=== PATIENT | male | born 1975 | race African-American/Black ===

== ENCOUNTER 2019-10-05 07:25 | Inpatient (IN) | payer SELFPAY ==
[~2019-10-05] VITALS: Ht 185.4 cm; Wt 68.9 kg
[~2019-10-05 07:25] MED LIST: ALBU2.5V5 NEB; FLUT1DIS5 IH
--- NOTE | 2019-10-05 08:03 | RAD ---
SHOULDER 2+V LEFT DATE: 10/05/2019 7:28 AM INDICATION: pain, fall COMPARISON: None. FINDINGS: Bones: There is no evidence of acute fracture or dislocation. Joints: The joint spaces are normal. The acromiohumeral distance is not narrowed. Miscellaneous: No abnormal soft tissue calcifications in the shoulder. IMPRESSION: No evidence of acute fracture. Electronically signed by: Grant Castanon MD (10/05/2019 8:00 AM) [id number]
[2019-10-05] MEDS ORDERED: diazePAM 5 MG TABLET PO ONE (08:15)
--- NOTE | 2019-10-05 08:27 | PHYS DOC ---
Past Medical History Past Medical History: COPD, Other Additional Past Medical Histor: EMPHYSEMA Past Surgical History: Other Additional Past Surgical Histo: SCROTUM SX Smoking Status: Current Every Day Smoker Alcohol Use: None Drug Use: Marijuana General Adult EDM: Chief Complaint: SHOULDER INJURY HPI: HPI: Patient is a 43 year old male who presents with neck, shoulder, arm pain. He was sleepwalking 2 nights ago and fell trying to open a door. He is unsure how he landed. He has been having midline neck pain that radiates into his shoulder and down his arm. He is left hand feels tingly along fingers 1 through 3. This is been ongoing since the fall. He denies any additional injuries. He denies any additional numbness. He has never had anything like this before. No medical history. Review of Systems: Review of Systems: General: Denies fever, chills, sweats, fatigue Eyes: Denies drainage, blurred vision HENT: Denies rhinorrhea, sore throat Respiratory: Denies cough, shortness of breath, wheezing Cardiac: Denies edema, palpitations, chest pain GI: Denies abdominal pain, N/V MSK: Denies back pain.reports neck pain Skin: Denies rash, jaundice Neuro: Denies headache, dizziness reports numbness in fingers Psychiatric: Denies SI/HI Heart Score: Risk Factors: Risk Factors: DM, Current or recent (<one month) smoker, HTN, HLP, family history of CAD, obesity. Risk Scores: Score 0 - 3: 2.5% MACE over next 6 weeks - Discharge Home Score 4 - 6: 20.3% MACE over next 6 weeks - Admit for Clinical Observation Score 7 - 10: 72.7% MACE over next 6 weeks - Early Invasive Strategies Current Medications: Current Medications Medications (Trade) Dose Ordered Sig/Vinny Start Time Stop Time Status Last Admin Dose Admin Diazepam (Valium) 5 mg 1X ONCE 10/05/19 08:15 10/05/19 08:16 DC Allergies: Allergies: Allergies Coded Allergies Type Severity Reaction Last Updated Verified No Known Drug Allergies 11/22/15 No Physical Exam: PE: Constitutional: Well developed, well nourished, Cooperative, NAD, non-toxic appearing HEENT: Normocephalic, atraumatic, oropharynx moist, EOMI, PERRL, no drainage from eyes, normal conjunctiva Neck: Supple, no stridor. Cervical spine tenderness Cardiovascular: RRR, 2+ radial pulses bilaterally, no edema Respiratory: CTA bilaterally, no respiratory distress, no wheezing/crackles Abdomen: Soft, nontender, nondistended, no masses Skin: Warm, dry, intact Extremities: No obvious deformities Neurologic: Alert and Oriented x3, 5/5 strength in bilateral upper and lower extremities proximally and distally, decreased sensation in fingers 1-3 in the left hand, otherwise intact sensation, cranial nerves II through XII intact, normal gait Psychologic: Normal affect, normal judgment, normal mood. No SI/HI Current Patient Data: Vital Signs: Vital Signs Date Time Temp Pulse Resp B/P (MAP) Pulse Ox O2 Delivery O2 Flow Rate FiO2 10/05/19 07:31 98.1 66 14 146/86 (106) 98 Room Air 98.1 EKG: EKG: [] Radiology/Procedures: Radiology/Procedures: [] Course & Med Decision Making: Course & Med Decision Making Pertinent Labs and Imaging studies reviewed. (See chart for details) Patient is a 43-year-old male who presents to the emergency room complaining of neck pain that radiates into his shoulder and down his arm. This started after falling. Patient does have some cervical spine tenderness. Given his paresthesias in his hand I am concerned about a possible cervical injury. X-ray of the shoulder was done as that is where most of his pain is and was normal. CT shows cervical spine facet fx. Neurosurgery(Dr Shin) was paged upon getting these results. CT angio negative for vascular injury. Patient to be admitted for evaluation. Erika Disclaimer: Erika Disclaimer: This electronic medical record was generated, in whole or in part, using a voice recognition dictation system. Departure Departure Impression: Primary Impression: Cervical spine fracture Additional Impression: Paresthesia Disposition: ADMITTED INPATIENT Condition: STABLE Referrals: NO PCP (PCP) Justicifation of Admission Dx: Justifications for Admission: Justification of Admission Dx: Yes NIRAV VALLE MD Oct 05, 2019 08:27
--- NOTE | 2019-10-05 08:54 | RAD ---
PQRS Compliance Statement: One or more of the following individualized dose reduction techniques were utilized for this examination: 1. Automated exposure control 2. Adjustment of the mA and/or kV according to patient size 3. Use of iterative reconstruction technique CT cervical spine without contrast 10/05/2019 8:10 AM INDICATION: Cervical spine tenderness and numbness in left hand COMPARISON: None available TECHNIQUE: Multiple axial CT images of the cervical spine were obtained without intravenous contrast. Coronal and sagittal reformats are provided. FINDINGS: Minimal retrolisthesis of C5 on C6. Skull base is intact. Craniocervical junction is normal in appearance. Atlantoaxial articulation is normal. There is an acute fracture involving the left transverse process extending into the left facet with extension of fracture line to the left C6-C7 facet joint along the superior articular surface of the C7 facet. Fracture line appears to extend to the left transverse foramen at C7 (series 3, image 50). There is no perched facet. There is disc height loss at C5-C6 and C6-C7. There is a posterior disc osteophyte complex at C5-C6 with mild facet arthropathy and moderate left and moderate uncovertebral joint disease resulting in moderate left and mild right neuroforaminal stenosis. No significant osseous spinal canal stenosis. There is a suspected left central disc protrusion at C6-C7 resulting in moderate left neuroforaminal stenosis and mild spinal canal stenosis. There is no prevertebral soft tissue swelling. Thyroid gland is normal in appearance. Bullous emphysematous changes are suspected at the lung apices without lung markings visualized. IMPRESSION: 1. Mildly displaced acute fracture involving the left C7 transverse process extending to the left C7 facet, as described in detail above. There is suggestion of disruption of the left transverse foramen at T7. CTA of the neck could be of benefit to assess for vascular injury. 2. Suspect bullous emphysematous changes at the lung apices as no lung markings are identified bilaterally. Electronically signed by: Kristina Nunez MD (10/05/2019 8:51 AM) JEZ
[2019-10-05] MEDS ORDERED: IOHEXOL 350 MG/ML 100 ML VIAL. IV ONE (10:30)
--- NOTE | 2019-10-05 11:05 | RAD ---
Exam: CT ANGIOGRAPHY NECK Date: 10/05/2019 9:33 AM Indication: Reason: cervical spine fx Comparison: CT C-spine 10/05/2019 Technique: CT angiogram of neck was obtained with bolus injection of 75 mL of Omnipaque 350. The images were sent to workstation and multiplanar reconstructions were obtained. Multiplanar reconstruction images to include MIP and 3-D reconstruction images are submitted. One or more of the following dose reduction techniques were utilized: Automated exposure control (AEC), Adjustment of mA and/or kV according to patient size, Use of iterative reconstruction technique such as ASiR, CT scan done according to ALARA and image gently/image wisely Findings: Right carotid: The right common carotid artery is patent and normal caliber. The carotid bifurcation is normal. No stenosis of the right internal carotid artery per NASCET criteria. The right external carotid artery is patent. Left carotid: The left common carotid artery is patent and normal caliber. The carotid bifurcation is normal. No stenosis of the left internal carotid artery per NASCET criteria. The left external carotid artery is patent. Right vertebral: The right vertebral artery is patent and normal caliber. Left vertebral: The left vertebral artery is patent and normal caliber. The visualized portions of the aortic arch are normal. The origins of the brachiocephalic and subclavian arteries are normal. No cervical lymphadenopathy. The thyroid gland is normal. The parotid and submandibular glands are normal. The visualized aerodigestive tract is unremarkable. Unchanged acute left C7 transverse process fracture. Biapical bullous disease. Impression: 1. No dissection or pseudoaneurysm of the cervical carotid or vertebral arteries. 2. Unchanged left C7 transverse process fracture. 3. No stenosis of the cervical carotid or vertebral arteries. PQRS Compliance Statement - Stenosis calculations for CT, MR and conventional angiography are based upon measurement of the distal ICA diameter in accordance with the NASCET methodology. Electronically signed by: Grant Castanon MD (10/05/2019 11:02 AM) [id number]
--- NOTE | 2019-10-05 11:38 | PDOC1 ---
History and Physical Date of Admission Date of Admission DATE: 10/05/19 TIME: 11:38 Identification/Chief Complaint Chief Complaint SEEN IN ER WITH CERVICAL FX 43 year old male who presents with neck, shoulder, arm pain. He was sleeping in friends truck 2 nights ago and fell when his friend opened the pick-up door, truck is normal height, he fell onto concrete surface He is unsure how he landed because he had been sleeping . C/O midline neck pain that radiates into his shoulder and down his arm. left hand feels tingly along fingers 1 through 3. This is been ongoing since the fall. denies any additional injuries. no head pain Past Medical History Past Medical History Past Medical History Past Medical History Past Medical History: COPD, Other Additional Past Medical Histor: EMPHYSEMA Past Surgical History: Other Additional Past Surgical Histo: SCROTUM SX Smoking Status: Current Every Day Smoker Alcohol Use: None Drug Use: Marijuana fhx copd Cardiovascular: No pertinent hx Pulmonary: COPD CENTRAL NERVOUS SYSTEM: Other GI: No pertinent hx Heme/Onc: No pertinent hx Hepatobiliary: No pertinent hx Psych: No pertinent hx Musculoskeletal: No pain Rheumatologic: No pertinent hx Infectious disease: No pertinent hx Renal/: No pertinent hx Endocrine: No pertinent hx Past Surgical History Past Surgical History: No pertinent history Family History Family History PAST SURGICAL HISTORY Past Surgical History: No pertinent history FAMILY HISTORY Family History negative for CAD, HTN, DM SOCIAL HISTORY Smoke: <1 pack per day (has smoked since he was a teenager; quits briefly when he is in senior living ) ALCOHOL: none Drugs: Marijuana (every other day) Lives: with Family (unemployed) Social History Smoke: <1 pack per day ALCOHOL: none Drugs: Marijuana, Other (unemployed) Current Medications Current Medications Current Medications Diazepam (Valium) 5 mg 1X ONCE PO Last administered on 10/05/19at 08:24; Start 10/05/19 at 08:15; Stop 10/05/19 at 08:16; Status DC Iohexol (Omnipaque 350 Mg/ml) 75 ml 1X ONCE IV Last administered on 10/05/19at 10:44; Start 10/05/19 at 10:30; Stop 10/05/19 at 10:32; Status DC Active Scripts Active Advair 500-50 Diskus (Fluticasone/Salmeterol) 1 Each Disk.w.dev 1 Puff IH BID Albuterol Sulfate Neb Soln (Albuterol Sulfate) 2.5 Mg/3 Ml Vial.neb 2.5 Mg NEB PRN Q4HRS PRN Allergies Allergies: Coded Allergies: No Known Drug Allergies (Unverified , 11/22/15) ROS Review of System Review of Systems: Review of Systems: General: Denies fever, chills, sweats, fatigue Eyes: Denies drainage, blurred vision HENT: Denies rhinorrhea, sore throat Respiratory: Denies cough, shortness of breath, wheezing Cardiac: Denies edema, palpitations, chest pain GI: Denies abdominal pain, N/V MSK: Denies back pain.reports neck pain Skin: Denies rash, jaundice Neuro: Denies headache, dizziness reports numbness in fingers Psychiatric: Denies SI/HI 14 pt ros otherwise neg PSYCHOLOGICAL ROS: No: Anxiety, Behavioral Disorder, Concentration difficultie, Decreased libido, Depression, Disorientation, Hallucinations, Hostility, Irritablity, Memory difficulties, Mood Swings, Obsessive thoughts, Physical abuse, Sexual abuse, Sleep disturbances, Suicidal ideation, Other Eyes: No Blurry vision, No Decreased vision, No Double vision, No Dry eyes, No Excessive tearing, No Eye Pain, No Itchy Eyes, No Loss of vision, No Photophobia, No Scotomata, No Uses contacts, No Uses glasses, No Other HEENT: No: Heacaches, Visual Changes, Hearing change, Nasal congestion, Nasal discharge, Oral lesions, Sinus pain, Sore Throat, Epistaxis, Sneezing, Snoring, Tinnitus, Vertigo, Vocal changes, Other ALLERGY AND IMMUNOLOGY: No: Hives, Insect Bite Sensitivity, Itchy/Watery Eyes, Nasal Congestion, Post Nasal Drip, Seasonal Allergies, Other Hematological and Lymphatic: No: Bleeding Problems, Blood Clots, Blood Transfusions, Brusing, Night Sweats, Pallor, Swollen Lymph Nodes, Other Respiratory: YES: Cough; No: Hemoptysis, Orthopnea, Pleuritic Pain, Shortness of breath, SOB with excertion, Sputum Changes, Stridor, Tachypnea, Wheezing, Other Cardiovascular: No Chest Pain, No Palpitations, No Orthopnea, No Paroxysmal Noc. Dyspnea, No Edema, No Lt Headedness, No Other Gastrointestinal: No Nausea, No Vomiting, No Abdominal Pain, No Diarrhea, No Constipation, No Melena, No Hematochezia, No Other Genitourinary: No Dysuria, No Frequency, No Incontinence, No Hematuria, No Retention, No Discharge, No Urgency, No Pain, No Flank Pain, No Other, No , No , No , No , No , No , No Neurological: Yes Gait Disturbance Skin: No Dry Skin, No Eczema, No Hair Changes, No Lumps, No Mole Changes, No Mottling, No Nail Changes, No Pruritus, No Rash, No Skin Lesion Changes, No Other, No Acne Physical Exam Physical Exam Physical Exam: PE: Constitutional: Well developed, well nourished, Cooperative, NAD, non-toxic appearing HEENT: Normocephalic, atraumatic, oropharynx moist, EOMI, PERRL, no drainage from eyes, normal conjunctiva Neck: Supple, no stridor. Cervical spine tenderness Cardiovascular: RRR, 2+ radial pulses bilaterally, no edema Respiratory: CTA bilaterally, no respiratory distress, no wheezing/crackles Abdomen: Soft, nontender, nondistended, no masses Skin: Warm, dry, intact Extremities: No obvious deformities Neurologic: Alert and Oriented x3, 5/5 strength in bilateral upper and lower extremities proximally and distally, decreased sensation in fingers 1-3 in the left hand, otherwise intact sensation, cranial nerves II through XII intact, normal gait Psychologic: Normal affect, normal judgment, normal mood. No SI/HI General: Alert, Oriented X3, Cooperative, No acute distress HEENT: EOMI, Mucous membr. moist/pink Lungs: Normal air movement Heart: RRR Breasts: Not examined Abdomen: Normal bowel sounds, Soft Rectal Exam: not examined Neuro: Normal speech, Cranial nerves 3-12 NL Vitals Vitals Vital Signs Date Time Temp Pulse Resp B/P (MAP) Pulse Ox O2 Delivery O2 Flow Rate FiO2 10/05/19 10:00 58 14 132/88 (103) 98 Room Air 10/05/19 07:31 98.1 98.1 Labs Labs Laboratory Tests Test 10/05/19 09:05 Sodium Level 143 mmol/L (136-145) Potassium Level 3.7 mmol/L (3.5-5.1) Chloride Level 106 mmol/L (98-107) Carbon Dioxide Level 28 mmol/L (21-32) Anion Gap 9 (6-14) Blood Urea Nitrogen 15 mg/dL (8-26) Creatinine 1.1 mg/dL (0.7-1.3) Estimated GFR (Cockcroft-Gault) 89.3 Glucose Level 89 mg/dL (70-99) Calcium Level 8.9 mg/dL (8.5-10.1) Laboratory Tests Test 10/05/19 09:05 Sodium Level 143 mmol/L (136-145) Potassium Level 3.7 mmol/L (3.5-5.1) Chloride Level 106 mmol/L (98-107) Carbon Dioxide Level 28 mmol/L (21-32) Anion Gap 9 (6-14) Blood Urea Nitrogen 15 mg/dL (8-26) Creatinine 1.1 mg/dL (0.7-1.3) Estimated GFR (Cockcroft-Gault) 89.3 Glucose Level 89 mg/dL (70-99) Calcium Level 8.9 mg/dL (8.5-10.1) Images Images Date: 10/05/2019 9:33 AM Indication: Reason: cervical spine fx Comparison: CT C-spine 10/05/2019 Technique: CT angiogram of neck was obtained with bolus injection of 75 mL of Omnipaque 350. The images were sent to workstation and multiplanar reconstructions were obtained. Multiplanar reconstruction images to include MIP and 3-D reconstruction images are submitted. One or more of the following dose reduction techniques were utilized: Automated exposure control (AEC), Adjustment of mA and/or kV according to patient size, Use of iterative reconstruction technique such as ASiR, CT scan done according to ALARA and image gently/image wisely Findings: Right carotid: The right common carotid artery is patent and normal caliber. The carotid bifurcation is normal. No stenosis of the right internal carotid artery per NASCET criteria. The right external carotid artery is patent. Left carotid: The left common carotid artery is patent and normal caliber. The carotid bifurcation is normal. No stenosis of the left internal carotid artery per NASCET criteria. The left external carotid artery is patent. Right vertebral: The right vertebral artery is patent and normal caliber. Left vertebral: The left vertebral artery is patent and normal caliber. The visualized portions of the aortic arch are normal. The origins of the brachiocephalic and subclavian arteries are normal. No cervical lymphadenopathy. The thyroid gland is normal. The parotid and submandibular glands are normal. The visualized aerodigestive tract is unremarkable. Unchanged acute left C7 transverse process fracture. Biapical bullous disease. Impression: 1. No dissection or pseudoaneurysm of the cervical carotid or vertebral arteries. 2. Unchanged left C7 transverse process fracture. 3. No stenosis of the cervical carotid or vertebral arteries. PQRS Compliance Statement - Stenosis calculations for CT, MR and conventional angiography are based upon measurement of the distal ICA diameter in accordance with the NASCET methodology. Electronically signed by: Theodore Boggs MD (10/05/2019 11:02 AM) [id number] DICTATED and SIGNED BY: THEODORE BOGGS MD CT cervical spine without contrast 10/05/2019 8:10 AM INDICATION: Cervical spine tenderness and numbness in left hand COMPARISON: None available TECHNIQUE: Multiple axial CT images of the cervical spine were obtained without intravenous contrast. Coronal and sagittal reformats are provided. FINDINGS: Minimal retrolisthesis of C5 on C6. Skull base is intact. Craniocervical junction is normal in appearance. Atlantoaxial articulation is normal. There is an acute fracture involving the left transverse process extending into the left facet with extension of fracture line to the left C6-C7 facet joint along the superior articular surface of the C7 facet. Fracture line appears to extend to the left transverse foramen at C7 (series 3, image 50). There is no perched facet. There is disc height loss at C5-C6 and C6-C7. There is a posterior disc osteophyte complex at C5-C6 with mild facet arthropathy and moderate left and moderate uncovertebral joint disease resulting in moderate left and mild right neuroforaminal stenosis. No significant osseous spinal canal stenosis. There is a suspected left central disc protrusion at C6-C7 resulting in moderate left neuroforaminal stenosis and mild spinal canal stenosis. There is no prevertebral soft tissue swelling. Thyroid gland is normal in appearance. Bullous emphysematous changes are suspected at the lung apices without lung markings visualized. IMPRESSION: 1. Mildly displaced acute fracture involving the left C7 transverse process extending to the left C7 facet, as described in detail above. There is suggestion of disruption of the left transverse foramen at T7. CTA of the neck could be of benefit to assess for vascular injury. 2. Suspect bullous emphysematous changes at the lung apices as no lung markings are identified bilaterally. Electronically signed by: Wan Scott MD (10/05/2019 8:51 AM) [facility] DICTATED and SIGNED BY: WAN SCOTT MD VTE Prophylaxis Ordered VTE Prophylaxis Devices: Yes VTE Pharmacological Prophylaxi: Contraindicated Assessment/Plan Assessment/Plan IMPRESSION: 1. Mechanical fall from truck 2. displaced acute fracture involving the left C7 transverse process extending to the left C7 facet, as described in detail above. There is suggestion of disruption of the left transverse foramen at T7. CTA of the neck // No dissection or pseudoaneurysm of the cervical carotid or vertebral arteries. 3 bullous emphysematous changes at the lung apices as no lung markings are identified bilaterally. 4. hx THC abuse admit NEUROSURGERY CONSULT covid screen for possible surgery Parsons collar PUM CONSULT IV FLUID SUPPORT SCD'S DVT PROPHYLAXIS NEUROCHECKS Q 4 HRS BEDREST FALL PRECAUTIONS PAIN CONTROL neurology consult 73 min pt exam, chart review, > 50% of time spent with exam, chart review, pt care coordination Justicifation of Admission Dx: Justifications for Admission: Justification of Admission Dx: Yes Altered Mental Status: Altered Mental Status Comments: cervical spine fracture YOLIS FARNSWORTH MD Oct 05, 2019 11:38
[2019-10-05] MEDS ORDERED: ONDANSETRON PF 4 MG/2 ML VIAL. IV PRN (12:15)
[2019-10-05] MEDS ORDERED: ALBUTEROL SULFATE 2.5 MG/3 ML NEBU. NEB PRN (12:15)
[2019-10-05] MEDS ORDERED: LORazepam 0.5 MG TABLET PO PRN (12:15)
[2019-10-05] MEDS ORDERED: MAG HYDROX/ALUMINUM HYD/SIMETH 30 ML ORAL.SUSP PO PRN (12:15)
[2019-10-05] MEDS ORDERED: SODIUM PHOSPHATES 19/7GM 133 ML ENEMA. PR PRN (12:15)
[2019-10-05] MEDS ORDERED: DOCUSATE SODIUM 100 MG CAPSULE. PO PRN (12:15)
[2019-10-05] MEDS ORDERED: 0.9 % SODIUM CHLORIDE 10 ML DISP.SYRIN. IV PRN (12:15)
[2019-10-05] MEDS ORDERED: ACETAMINOPHEN 325 MG TABLET. PO PRN (12:15)
[2019-10-05] MEDS ORDERED: cloNIDine HCL 0.1 MG TABLET PO PRN (12:15)
[2019-10-05] MEDS ORDERED: HYDROmorphone 2 MG/ML VIAL IV PRN (12:15)
[2019-10-05] MEDS ORDERED: guaiFENesin ORAL 200 MG/10 ML LIQUID. PO PRN (12:15)
[2019-10-05 12:43] LABS: BASO % 1 % (0-3); EOS % 1 % (0-3); HEMATOCRIT 43.1 % (39.0-53.0); HEMOGLOBIN 14.7 g/dL (13.0-17.5); LYMPH # 1.2 x10^3/uL (1.0-4.8); LYMPH % 22 % (24-48); MEAN CORPUSCULAR HEMOGLOBIN 32 pg (25-35); MEAN CORPUSCULAR HGB CONC 34 g/dL (31-37); MEAN CORPUSCULAR VOLUME 93 fL (79-100); MONO # 0.5 x10^3/uL (0.0-1.1); MONO % 8 % (0-9); NEUT % 69 % (31-73); PLATELET COUNT 257 x10^3/uL (140-400); RED BLOOD COUNT 4.65 x10^6/uL (4.30-5.70); RED CELL DISTRIBUTION WIDTH 15.7 % (11.5-14.5); WHITE BLOOD COUNT 5.8 x10^3/uL (4.0-11.0)
[2019-10-05 12:56] LABS: PROTHROMBIN TIME PATIENT 12.8 SEC (11.7-14.0)
--- NOTE | 2019-10-05 13:00 | NUR ---
Pt admitted from ED via gurney. Able to slide over on his own. VSS. Denies pain with hard collar on. Completed admission assessment. Consults called. Call light within reach. Will return to monitor.
[2019-10-05 13:30] LABS: ALBUMIN 3.7 g/dL (3.4-5.0); ALBUMIN/GLOBULIN RATIO 1.3 (1.0-1.7); CREATININE 1.2 mg/dL (0.7-1.3); GFR 80.7; POTASSIUM 3.8 mmol/L (3.5-5.1); TOTAL BILIRUBIN 0.2 mg/dL (0.2-1.0); TOTAL PROTEIN 6.6 g/dL (6.4-8.2)
[2019-10-05 15:00] VITALS: BP 139/91
[2019-10-05] MEDS: IPRATRPIUM/ALBUTEROL 0.5/2.5MG 3 ML NEBU. NEB SCH ×2 (15:30→19:46)
--- NOTE | 2019-10-05 15:57 | CONS ---
DATE OF CONSULTATION: PULMONARY CONSULTATION ATTENDING PHYSICIAN: Dr. Jauregui. REASON FOR CONSULTATION: COPD. HISTORY OF PRESENT ILLNESS: The patient is a 43-year-old who came into the hospital after he fell from his truck 2 nights ago. He was complaining of neck pain. He underwent imaging study including CT angiogram of the neck and has a C7 transverse process fracture. I have been asked to see him for COPD. He has been smoking since age 11. He has done marijuana, but no cocaine. No shortness of breath. No chest pains. No cough, no fever, no chills. PAST MEDICAL HISTORY: Significant for COPD. PAST SURGICAL HISTORY: No recent surgeries. ALLERGIES: None. MEDICATIONS: Reviewed as listed in the [facility]AD. SOCIAL HISTORY: Marijuana use and tobacco use since age 11. PHYSICAL EXAMINATION: VITAL SIGNS: Reviewed. Stable. Pulse ox 99% on room air. NECK: He is in a cervical collar. LUNGS: Diminished breath sounds. CARDIOVASCULAR: Regular rate. ABDOMEN: Soft. EXTREMITIES: No pitting edema. LABORATORY DATA: Reviewed. White cell count 5.8, hemoglobin 14.7, platelets 257. IMPRESSION: 1. Status post fall with C7 transverse process fracture, being seen by Neurosurgery. 2. Long history of tobacco use, suspect underlying chronic obstructive pulmonary disease. He also had an abnormal chest x-ray in 11/2015. At that time, he appeared to have upper lobe bullous lung disease. He would benefit from a noncontrast CT chest. RECOMMENDATIONS: 1. Smoking cessation counseling provided. 2. Follow Neurosurgery recommendations. 3. PFTs as an outpatient. 4. Noncontrast CT chest to better assess for severe bullous lung disease. Discussed with RN. KWESI CHAMPAGNE MD DR: FREDY/jamel JOB#: [id number] / [id number]
[2019-10-05] MEDS ORDERED: ALBUTEROL SULFATE 2.5 MG/3 ML NEBU. NEB SCH (16:00)
--- NOTE | 2019-10-05 16:37 | RAD ---
EXAMINATION: Magnetic resonance imaging (MRI) of the cervical spine without contrast 10/05/2019 2:33 PM HISTORY: C7 transverse process fracture, post fall 2 days ago. Left arm radiculopathy. TECHNIQUE: Multiplanar multi-weighted MRI of the cervical spine was performed without intravenous contrast using the standard cervical spine protocol. Contrast information: None administered COMPARISON: None available. FINDINGS: The alignment of the cervical spine is normal. Vertebral bodies demonstrate normal signal intensity on all sequences. Administration of acute fracture involving the left C7 transverse process and facet. No facet distraction visualized. The craniocervical junction is normal. The visualized portions of the skull base and the posterior fossa are normal. The spinal cord demonstrates normal signal intensity on all sequences. Mild disc height loss is noted C5-C6 and C6-C7. There is interspinous segment is edema identified at C7, C7-T1, T1-T2 and T2-T3. Edema is noted involving the iris processes at T1, T2 and T3. Normal signal voids are present in the vertebral arteries. C2-C3: The disk is normal in configuration. There is no facet arthropathy. There is no uncovertebral joint disease. There is no neuroforaminal stenosis. There is no spinal canal stenosis. C3-C4: The disk is normal in configuration. There is no facet arthropathy. There is no uncovertebral joint disease. There is no neuroforaminal stenosis. There is no spinal canal stenosis. C4-C5: The disk is normal in configuration. There is no facet arthropathy. There is no uncovertebral joint disease. There is no neuroforaminal stenosis. There is no spinal canal stenosis. C5-C6: There is a posterior disc osteophyte complex at C5-C6. There is mild facet arthropathy. There is mild uncovertebral joint disease. There is mild to moderate bilateral neuroforaminal stenosis. There is mild spinal canal stenosis with minimal deformity of the cord. No cord signal alteration. C6-C7: There is a left central disc extrusion. There is mild facet arthropathy. There is mild uncovertebral joint disease. There is severe left and mild right neuroforaminal stenosis. There is mild to moderate spinal canal stenosis with minimal indentation the ventral cord. No cord signal alteration is visualized. C7-T1: The disk is normal in configuration. There is no facet arthropathy. There is no uncovertebral joint disease. There is no neuroforaminal stenosis. There is no spinal canal stenosis. IMPRESSION: 1. Redemonstration of a fracture involving the left C7 transverse process extending to the left C7 facet to the articular surface the C6-C7 facet joint. No distraction of the facet joint is identified. 2. There is a left central disc extrusion at C6-C7 resulting in severe left neuroforaminal stenosis and mild to moderate spinal canal stenosis with mild deformity of the cord. No cord signal alteration is identified. 3. Interspinous segment is edema is identified at C6-C7, C7-T1 and T1-2. Marrow edema is identified involving the spinous processes at T1, T2 and T3. Electronically signed by: Kristina Nunez MD (10/05/2019 4:34 PM) [facility]
[2019-10-05] MEDS: IV NORMAL SALINE 1000ML BAG 1,000 ML IV SCH (18:15)
[2019-10-05 19:00] VITALS: BP 146/81
[2019-10-05] MEDS: BUDESONIDE 0.5 MG/2 ML NEBU. NEB SCH (19:46)
[2019-10-05 20:39] LABS: BILIRUBIN,URINE NEGATIVE (NEG); CLARITY,URINE CLEAR; COLOR,URINE YELLOW; NITRITE,URINE NEGATIVE (NEG); PH,URINE 5.5 (<5.0-8.0); PROTEIN,URINE NEGATIVE (NEG-TRACE); UROBILINOGEN,URINE 0.2 mg/dL (0.2 mg/dL)
[2019-10-05 20:48] LABS: AMPHETAMINE/METHAMPHETAMINE NEG (NEG); BACTERIA,URINE 0 /HPF (0-FEW); BARBITURATES NEG (NEG); BENZODIAZEPINES POS (NEG); CANNABINOIDS POS (NEG); COCAINE NEG (NEG); METHADONE NEG (NEG); OPIATES NEG (NEG); PHENCYCLIDINE POS (NEG)
[2019-10-05] MEDS ORDERED: NON FORMULARY ITEM (Fluticasone/Salmeterol (Advair 500-50 Diskus) 1 PUFF) IH SCH (21:00)
[2019-10-05 23:00] VITALS: BP 111/64
[2019-10-06 03:00] VITALS: BP 122/71
[2019-10-06] MEDS: IV NORMAL SALINE 1000ML BAG 1,000 ML IV SCH ×3 (03:19→12:13)
[2019-10-06] MEDS: IPRATRPIUM/ALBUTEROL 0.5/2.5MG 3 ML NEBU. NEB SCH ×4 (06:00→14:00)
[2019-10-06 07:00] VITALS: BP 120/75
[2019-10-06] MEDS: BUDESONIDE 0.5 MG/2 ML NEBU. NEB SCH (07:23)
--- NOTE | 2019-10-06 09:00 | RAD ---
CT CHEST WO CONTRAST INDICATION: Reason: bullous lung dz / Spl. Instructions: / History: . COMPARISON STUDY: CT C-spine 10/05/2019. TECHNIQUE: Unenhanced axial images were obtained through the lungs and upper abdomen. Coronal and sagittal multiplanar reconstructions were also obtained. PQRS compliance statement: One or more of the following individualized dose reduction techniques were utilized for this examination: 1. Automated exposure control 2. Adjustment of the mA and/or kV according to patient size 3. Use of iterative reconstruction technique FINDINGS: Lungs and Airways: Right upper lobe subpleural nodule with areas of faint calcification measuring 1.2 x 1.2 x 2.0 cm (AP by TV by CC). Paraseptal emphysema with biapical bullous disease, most pronounced on the right with involvement of a majority of the right upper lobe. Normal central airways. Pleura: The pleural spaces are normal. Heart and Mediastinum: The visualized thyroid gland is normal in size and attenuation. No axillary or supraclavicular lymphadenopathy. No mediastinal, hilar or retrocrural lymphadenopathy. The heart and pericardium are within normal limits. The great vessels of the thorax are normal. Abdomen: The visualized abdominal organs demonstrate no abnormality. Bones and Soft Tissues: The visualized skeletal structures and soft tissues of the chest wall are within normal limits. IMPRESSION: 1. Right upper lobe partially calcified subpleural nodule measuring up to 2 cm. Recommend three-month follow-up chest CT to assess stability. PET/CT could also be considered. 2. Paraseptal emphysema with biapical bullous disease, greater on the right. Electronically signed by: Grant Castanon MD (10/06/2019 8:58 AM) [id number]
[2019-10-06 10:47] VITALS: BP 123/70
--- NOTE | 2019-10-06 10:52 | NUR ---
DESTINI following. Discussed with RN, pt from home with family, room air. Pt positive for PCP and benzos. PAT consulted for drug use/abuse. Awaiting consult from Dr. Maguire. DESTINI will continue to follow. Addendum: 10/06/19 at 1205 by NAHOMY GEORGES Jojo with PAT met with pt, pt denies his PCP use causes any problems and is only social. [facility] at this [facility]. Jojo provided resources for [facility] clinics. DESTINI will continue to follow.
--- NOTE | 2019-10-06 11:15 | PDOC ---
PROGRESS NOTES History of Present Illness History of Present Illness VTE Prophylaxis Ordered VTE Prophylaxis Devices: Yes VTE Pharmacological Prophylaxi: Contraindicated DISCHARGE DX Assessment/Plan IMPRESSION: 1. Mechanical fall from truck while asleep POA 2. displaced TRAUMATIC acute fracture involving the left C7 transverse process extending to the left C7 facet, as described in detail above. There is suggestion of disruption of the left transverse foramen at T7. CTA of the neck // No dissection or pseudoaneurysm of the cervical carotid or vertebral arteries. 3 bullous emphysematous changes at the lung apices as no lung markings are identified bilaterally. 4. hx THC abuse 5. POLYSUBSTANCE ABUSE including pcp 6. Right upper lobe partially calcified subpleural nodule measuring up to 2 cm. Recommend three-month follow-up chest CT to assess stability. PET/CT could also be considered. admit NEUROSURGERY CONSULT covid screen for possible surgery [place] collar PUM CONSULT will see in f/u IV FLUID SUPPORT SCD'S DVT PROPHYLAXIS NEUROCHECKS Q 4 HRS BEDREST FALL PRECAUTIONS PAIN CONTROL substance abuse counseling [facility] remain in hard collar may dc home 10/[address] CANALES will follow up with c spine x rays in [address] ROBERSON NO DRIVING , NO DRUG ABUSE 34 min pt exam, chart review, > 50% of time spent with exam, chart review, pt care coordination Justicifation of Admission Dx: Justicifation of Admission Dx: Justifications for Admission: Justification of Admission Dx: Yes Altered Mental Status: Altered Mental Status Comments: cervical spine fracture Vitals Vitals Vital Signs Date Time Temp Pulse Resp B/P (MAP) Pulse Ox O2 Delivery O2 Flow Rate FiO2 10/06/19 10:47 98.0 60 18 123/70 (87) 98 Room Air 98.0 Physical Exam General: Alert, Oriented X3, Cooperative, No acute distress Heart: Regular rate, Normal S1 Lungs: Clear Abdomen: Normal bowel sounds, Soft Extremities: No cyanosis Skin: No significant lesion Labs LABS CT CHEST WO CONTRAST INDICATION: Reason: bullous lung dz / Spl. Instructions: / History: . COMPARISON STUDY: CT C-spine 10/05/2019. TECHNIQUE: Unenhanced axial images were obtained through the lungs and upper abdomen. Coronal and sagittal multiplanar reconstructions were also obtained. PQRS compliance statement: One or more of the following individualized dose reduction techniques were utilized for this examination: 1. Automated exposure control 2. Adjustment of the mA and/or kV according to patient size 3. Use of iterative reconstruction technique FINDINGS: Lungs and Airways: Right upper lobe subpleural nodule with areas of faint calcification measuring 1.2 x 1.2 x 2.0 cm (AP by TV by CC). Paraseptal emphysema with biapical bullous disease, most pronounced on the right with involvement of a majority of the right upper lobe. Normal central airways. Pleura: The pleural spaces are normal. Heart and Mediastinum: The visualized thyroid gland is normal in size and attenuation. No axillary or supraclavicular lymphadenopathy. No mediastinal, hilar or retrocrural lymphadenopathy. The heart and pericardium are within normal limits. The great vessels of the thorax are normal. Abdomen: The visualized abdominal organs demonstrate no abnormality. Bones and Soft Tissues: The visualized skeletal structures and soft tissues of the chest wall are within normal limits. IMPRESSION: 1. Right upper lobe partially calcified subpleural nodule measuring up to 2 cm. Recommend three-month follow-up chest CT to assess stability. PET/CT could also be considered. 2. Paraseptal emphysema with biapical bullous disease, greater on the right. Electronically signed by: Grant Castanon MD (10/06/2019 8:58 AM) [id number] Laboratory Tests Test 10/05/19 20:30 Urine Collection Type Unknown Urine Color Yellow Urine Clarity Clear Urine pH 5.5 (<5.0-8.0) Urine Specific [place] >=1.030 (1.000-1.030) Urine Protein Negative mg/dL (NEG-TRACE) Urine Glucose (UA) Negative mg/dL (NEG) Urine Ketones (Stick) Negative mg/dL (NEG) Urine Blood Negative (NEG) Urine Nitrite Negative (NEG) Urine Bilirubin Negative (NEG) Urine Urobilinogen Dipstick 0.2 mg/dL (0.2 mg/dL) Urine Leukocyte Esterase Negative (NEG) Urine RBC 1-2 /HPF (0-2) Urine WBC 5-10 /HPF (0-4) Urine Bacteria 0 /HPF (0-FEW) Urine Mucus Marked /LPF Urine Opiates Screen Neg (NEG) Urine Methadone Screen Neg (NEG) Urine Barbiturates Neg (NEG) Urine Phencyclidine Screen Pos (NEG) Urine Amphetamine/Methamphetamine Neg (NEG) Urine Benzodiazepines Screen Pos (NEG) Urine Cocaine Screen Neg (NEG) Urine Cannabinoids Screen Pos (NEG) Urine Ethyl Alcohol Neg (NEG) Assessment and Plan Assessmemt and Plan Problems Medical Problems: (1) Paresthesia Status: Acute Comment Review of Relevant I have reviewed the following items angel (where applicable) has been applied. Labs Laboratory Tests Test 10/05/19 09:05 10/05/19 20:30 White Blood Count 5.8 x10^3/uL (4.0-11.0) Red Blood Count 4.65 x10^6/uL (4.30-5.70) Hemoglobin 14.7 g/dL (13.0-17.5) Hematocrit 43.1 % (39.0-53.0) Mean Corpuscular Volume 93 fL (79-100) Mean Corpuscular Hemoglobin 32 pg (25-35) Mean Corpuscular Hemoglobin Concent 34 g/dL (31-37) Red Cell Distribution Width 15.7 % (11.5-14.5) Platelet Count 257 x10^3/uL (140-400) Neutrophils (%) (Auto) 69 % (31-73) Lymphocytes (%) (Auto) 22 % (24-48) Monocytes (%) (Auto) 8 % (0-9) Eosinophils (%) (Auto) 1 % (0-3) Basophils (%) (Auto) 1 % (0-3) Neutrophils # (Auto) 4.0 x10^3/uL (1.8-7.7) Lymphocytes # (Auto) 1.2 x10^3/uL (1.0-4.8) Monocytes # (Auto) 0.5 x10^3/uL (0.0-1.1) Eosinophils # (Auto) 0.0 x10^3/uL (0.0-0.7) Basophils # (Auto) 0.0 x10^3/uL (0.0-0.2) Prothrombin Time 12.8 SEC (11.7-14.0) Prothromb Time International Ratio 1.0 (0.8-1.1) Sodium Level 143 mmol/L (136-145) Potassium Level 3.8 mmol/L (3.5-5.1) Chloride Level 107 mmol/L (98-107) Carbon Dioxide Level 25 mmol/L (21-32) Anion Gap 11 (6-14) Blood Urea Nitrogen 15 mg/dL (8-26) Creatinine 1.2 mg/dL (0.7-1.3) Estimated GFR (Cockcroft-Gault) 80.7 BUN/Creatinine Ratio 13 (6-20) Glucose Level 88 mg/dL (70-99) Calcium Level 9.0 mg/dL (8.5-10.1) Total Bilirubin 0.2 mg/dL (0.2-1.0) Aspartate Amino Transf (AST/SGOT) 19 U/L (15-37) Alanine Aminotransferase (ALT/SGPT) 16 U/L (16-63) Alkaline Phosphatase 48 U/L (46-116) Total Protein 6.6 g/dL (6.4-8.2) Albumin 3.7 g/dL (3.4-5.0) Albumin/Globulin Ratio 1.3 (1.0-1.7) Urine Collection Type Unknown Urine Color Yellow Urine Clarity Clear Urine pH 5.5 (<5.0-8.0) Urine Specific [place] >=1.030 (1.000-1.030) Urine Protein Negative mg/dL (NEG-TRACE) Urine Glucose (UA) Negative mg/dL (NEG) Urine Ketones (Stick) Negative mg/dL (NEG) Urine Blood Negative (NEG) Urine Nitrite Negative (NEG) Urine Bilirubin Negative (NEG) Urine Urobilinogen Dipstick 0.2 mg/dL (0.2 mg/dL) Urine Leukocyte Esterase Negative (NEG) Urine RBC 1-2 /HPF (0-2) Urine WBC 5-10 /HPF (0-4) Urine Bacteria 0 /HPF (0-FEW) Urine Mucus Marked /LPF Urine Opiates Screen Neg (NEG) Urine Methadone Screen Neg (NEG) Urine Barbiturates Neg (NEG) Urine Phencyclidine Screen Pos (NEG) Urine Amphetamine/Methamphetamine Neg (NEG) Urine Benzodiazepines Screen Pos (NEG) Urine Cocaine Screen Neg (NEG) Urine Cannabinoids Screen Pos (NEG) Urine Ethyl Alcohol Neg (NEG) Laboratory Tests Test 10/05/19 20:30 Urine Collection Type Unknown Urine Color Yellow Urine Clarity Clear Urine pH 5.5 (<5.0-8.0) Urine Specific [place] >=1.030 (1.000-1.030) Urine Protein Negative mg/dL (NEG-TRACE) Urine Glucose (UA) Negative mg/dL (NEG) Urine Ketones (Stick) Negative mg/dL (NEG) Urine Blood Negative (NEG) Urine Nitrite Negative (NEG) Urine Bilirubin Negative (NEG) Urine Urobilinogen Dipstick 0.2 mg/dL (0.2 mg/dL) Urine Leukocyte Esterase Negative (NEG) Urine RBC 1-2 /HPF (0-2) Urine WBC 5-10 /HPF (0-4) Urine Bacteria 0 /HPF (0-FEW) Urine Mucus Marked /LPF Urine Opiates Screen Neg (NEG) Urine Methadone Screen Neg (NEG) Urine Barbiturates Neg (NEG) Urine Phencyclidine Screen Pos (NEG) Urine Amphetamine/Methamphetamine Neg (NEG) Urine Benzodiazepines Screen Pos (NEG) Urine Cocaine Screen Neg (NEG) Urine Cannabinoids Screen Pos (NEG) Urine Ethyl Alcohol Neg (NEG) Medications Current Medications Diazepam (Valium) 5 mg 1X ONCE PO Last administered on 10/05/19at 08:24; Start 10/05/19 at 08:15; Stop 10/05/19 at 08:16; Status DC Iohexol (Omnipaque 350 Mg/ml) 75 ml 1X ONCE IV Last administered on 10/05/19at 10:44; Start 10/05/19 at 10:30; Stop 10/05/19 at 10:32; Status DC Albuterol Sulfate (Ventolin Neb Soln) 2.5 mg PRN Q4HRS PRN NEB SHORTNESS OF BREATH; Start 10/05/19 at 12:15 Non-Formulary Medication (Fluticasone/ Salmeterol (Advair 500-50 Diskus)) 1 puff BID IH ; Start 10/05/19 at 21:00; Status UNV Albuterol Sulfate (Ventolin Neb Soln) 2.5 mg RTQID NEB ; Start 10/05/19 at 16:00 Budesonide (Pulmicort) 0.5 mg RTBID NEB Last administered on 10/05/19at 19:46; Start 10/05/19 at 20:00 Sodium Chloride (Normal Saline Flush) 3 ml QSHIFT PRN IV AFTER MEDS AND BLOOD DRAWS; Start 10/05/19 at 12:15 Sodium Chloride 1,000 ml @ 125 mls/hr Q8H IV Last administered on 10/06/19at 03:19; Start 10/05/19 at 12:13 Ondansetron HCl (Zofran) 4 mg PRN Q4HRS PRN IV NAUSEA/VOMITING; Start 10/05/19 at 12:15 Acetaminophen (Tylenol) 650 mg PRN Q4HRS PRN PO TEMP OVER 100.4F OR MILD PAIN; Start 10/05/19 at 12:15 Al Hydroxide/Mg Hydroxide (Mylanta Plus Xs) 30 ml PRN DAILY PRN PO HEARTBURN / GAS; Start 10/05/19 at 12:15 Clonidine HCl (Catapres) 0.1 mg PRN Q6HRS PRN PO SBP>160 OR DBP>90; Start 10/05/19 at 12:15 Sodium Monofluorophosphate (Fleet Adult) 133 ml PRN DAILY PRN MT CONSTIPATION; Start 10/05/19 at 12:15 Docusate Sodium (Colace) 100 mg PRN BID PRN PO HARD STOOLS; Start 10/05/19 at 12:15 Albuterol/ Ipratropium (Duoneb) 3 ml Q4HRS W/A NEB Last administered on 10/06/19at 07:18; Start 10/05/19 at 14:00 Guaifenesin (Robitussin) 200 mg PRN Q4HRS PRN PO COUGH; Start 10/05/19 at 12:15 Lorazepam (Ativan) 0.5 mg PRN Q4HRS PRN PO ANXIETY / AGITATION; Start 10/05/19 at 12:15 Hydromorphone HCl (Dilaudid) 0.5 mg PRN Q2HRS PRN IV SEVERE PAIN 7-10 Last administered on 10/06/19at 07:48; Start 10/05/19 at 12:15 Active Scripts Active Advair 500-50 Diskus (Fluticasone/Salmeterol) 1 Each Disk.w.dev 1 Puff IH BID Albuterol Sulfate Neb Soln (Albuterol Sulfate) 2.5 Mg/3 Ml Vial.neb 2.5 Mg NEB PRN Q4HRS PRN Vitals/I & O Vital Sign - Last 24 Hours 10/05/19 10/05/19 10/05/19 10/05/19 11:30 12:00 12:30 13:39 Pulse 59 Resp 14 14 14 B/P (MAP) 142/93 (109) 134/88 (103) 139/93 (108) Pulse Ox 100 100 100 O2 Delivery Room Air Room Air Room Air Room Air 10/05/19 10/05/19 10/05/19 10/05/19 15:00 15:33 19:00 19:47 Temp 98.4 98.4 Pulse 54 72 Resp 16 18 B/P (MAP) 139/91 (107) 146/81 (102) Pulse Ox 98 99 99 99 O2 Delivery Room Air Room Air Room Air Room Air 10/05/19 10/05/19 10/05/19 10/06/19 19:48 20:00 23:00 03:00 Temp 98.7 98.2 98.7 98.2 Pulse 75 55 Resp 18 18 B/P (MAP) 111/64 (80) 122/71 (88) Pulse Ox 99 99 99 O2 Delivery Room Air Room Air Room Air Room Air 10/06/19 10/06/19 10/06/19 10/06/19 07:00 07:21 07:23 07:45 Temp 96.8 96.8 Pulse 75 Resp 18 B/P (MAP) 120/75 (90) Pulse Ox 98 98 98 O2 Delivery Room Air Room Air Room Air Room Air 10/06/19 10/06/19 10/06/19 07:48 08:18 10:47 Temp 98.0 98.0 Pulse 60 Resp 18 B/P (MAP) 123/70 (87) Pulse Ox 98 98 98 O2 Delivery Room Air Room Air Room Air Intake and Output 10/05/19 10/05/19 10/06/19 14:59 22:59 06:59 Intake Total 0 ml Output Total 200 ml Balance -200 ml YOLIS FARNSWORTH MD Oct 06, 2019 11:15
--- NOTE | 2019-10-06 11:52 | PDOC ---
PULMONARY PROGRESS NOTES Subjective no soa Vitals Vital Signs Date Time Temp Pulse Resp B/P (MAP) Pulse Ox O2 Delivery O2 Flow Rate FiO2 10/06/19 10:47 98.0 60 18 123/70 (87) 98 Room Air 98.0 Lungs: Clear Cardiovascular: S1 Abdomen: Soft Neuro Exam: Alert Extremities: No Edema Skin: Warm Labs Laboratory Tests Test 10/05/19 09:05 10/05/19 20:30 White Blood Count 5.8 x10^3/uL (4.0-11.0) Red Blood Count 4.65 x10^6/uL (4.30-5.70) Hemoglobin 14.7 g/dL (13.0-17.5) Hematocrit 43.1 % (39.0-53.0) Mean Corpuscular Volume 93 fL (79-100) Mean Corpuscular Hemoglobin 32 pg (25-35) Mean Corpuscular Hemoglobin Concent 34 g/dL (31-37) Red Cell Distribution Width 15.7 % (11.5-14.5) Platelet Count 257 x10^3/uL (140-400) Neutrophils (%) (Auto) 69 % (31-73) Lymphocytes (%) (Auto) 22 % (24-48) Monocytes (%) (Auto) 8 % (0-9) Eosinophils (%) (Auto) 1 % (0-3) Basophils (%) (Auto) 1 % (0-3) Neutrophils # (Auto) 4.0 x10^3/uL (1.8-7.7) Lymphocytes # (Auto) 1.2 x10^3/uL (1.0-4.8) Monocytes # (Auto) 0.5 x10^3/uL (0.0-1.1) Eosinophils # (Auto) 0.0 x10^3/uL (0.0-0.7) Basophils # (Auto) 0.0 x10^3/uL (0.0-0.2) Prothrombin Time 12.8 SEC (11.7-14.0) Prothromb Time International Ratio 1.0 (0.8-1.1) Sodium Level 143 mmol/L (136-145) Potassium Level 3.8 mmol/L (3.5-5.1) Chloride Level 107 mmol/L (98-107) Carbon Dioxide Level 25 mmol/L (21-32) Anion Gap 11 (6-14) Blood Urea Nitrogen 15 mg/dL (8-26) Creatinine 1.2 mg/dL (0.7-1.3) Estimated GFR (Cockcroft-Gault) 80.7 BUN/Creatinine Ratio 13 (6-20) Glucose Level 88 mg/dL (70-99) Calcium Level 9.0 mg/dL (8.5-10.1) Total Bilirubin 0.2 mg/dL (0.2-1.0) Aspartate Amino Transf (AST/SGOT) 19 U/L (15-37) Alanine Aminotransferase (ALT/SGPT) 16 U/L (16-63) Alkaline Phosphatase 48 U/L (46-116) Total Protein 6.6 g/dL (6.4-8.2) Albumin 3.7 g/dL (3.4-5.0) Albumin/Globulin Ratio 1.3 (1.0-1.7) Urine Collection Type Unknown Urine Color Yellow Urine Clarity Clear Urine pH 5.5 (<5.0-8.0) Urine Specific [place] >=1.030 (1.000-1.030) Urine Protein Negative mg/dL (NEG-TRACE) Urine Glucose (UA) Negative mg/dL (NEG) Urine Ketones (Stick) Negative mg/dL (NEG) Urine Blood Negative (NEG) Urine Nitrite Negative (NEG) Urine Bilirubin Negative (NEG) Urine Urobilinogen Dipstick 0.2 mg/dL (0.2 mg/dL) Urine Leukocyte Esterase Negative (NEG) Urine RBC 1-2 /HPF (0-2) Urine WBC 5-10 /HPF (0-4) Urine Bacteria 0 /HPF (0-FEW) Urine Mucus Marked /LPF Urine Opiates Screen Neg (NEG) Urine Methadone Screen Neg (NEG) Urine Barbiturates Neg (NEG) Urine Phencyclidine Screen Pos (NEG) Urine Amphetamine/Methamphetamine Neg (NEG) Urine Benzodiazepines Screen Pos (NEG) Urine Cocaine Screen Neg (NEG) Urine Cannabinoids Screen Pos (NEG) Urine Ethyl Alcohol Neg (NEG) Laboratory Tests Test 10/05/19 20:30 Urine Collection Type Unknown Urine Color Yellow Urine Clarity Clear Urine pH 5.5 (<5.0-8.0) Urine Specific [place] >=1.030 (1.000-1.030) Urine Protein Negative mg/dL (NEG-TRACE) Urine Glucose (UA) Negative mg/dL (NEG) Urine Ketones (Stick) Negative mg/dL (NEG) Urine Blood Negative (NEG) Urine Nitrite Negative (NEG) Urine Bilirubin Negative (NEG) Urine Urobilinogen Dipstick 0.2 mg/dL (0.2 mg/dL) Urine Leukocyte Esterase Negative (NEG) Urine RBC 1-2 /HPF (0-2) Urine WBC 5-10 /HPF (0-4) Urine Bacteria 0 /HPF (0-FEW) Urine Mucus Marked /LPF Urine Opiates Screen Neg (NEG) Urine Methadone Screen Neg (NEG) Urine Barbiturates Neg (NEG) Urine Phencyclidine Screen Pos (NEG) Urine Amphetamine/Methamphetamine Neg (NEG) Urine Benzodiazepines Screen Pos (NEG) Urine Cocaine Screen Neg (NEG) Urine Cannabinoids Screen Pos (NEG) Urine Ethyl Alcohol Neg (NEG) Medications Active Scripts Medications Dose Route/Sig Max Daily Dose Days Date Category Advair 500-50 Diskus (Fluticasone/Salmeterol) 1 Each Disk.w.dev 1 Puff IH BID 11/23/15 Rx Albuterol Sulfate Neb Soln (Albuterol Sulfate) 2.5 Mg/3 Ml Vial.neb 2.5 Mg NEB PRN Q4HRS PRN 11/23/15 Rx Impression . 1. Status post fall with C7 transverse process fracture, being seen by Neurosurgery. 2. Long history of tobacco use, suspect underlying chronic obstructive pulmonary disease. He also had an abnormal chest x-ray in 11/2015. At that time, he appeared to have upper lobe bullous lung disease. Plan . 1. Smoking cessation counseling provided. 2. Follow Neurosurgery recommendations. 3. PFTs as an outpatient. 4. Noncontrast CT chest reviewed. severe bullous lung disease upper lobes/ partially calcified RUL nodule. f/u ct in 3 months. likely hamartoma. Needs to have alpha -1 level checked as OP. and f/u at for possible bullectomy Discussed with RN. KWESI CHAMPAGNE MD Oct 06, 2019 11:52
--- NOTE | 2019-10-06 12:51 | PDOC ---
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, severe left neural foraminal stenosis, no spinal cord signal changes, left C7 Transverse process fracture extending to the facet remain in hard collar may dc home will follow up with c spine x rays in 2 weeks d/w RN Objective Objective Vital Signs Date Time Temp Pulse Resp B/P (MAP) Pulse Ox O2 Delivery O2 Flow Rate FiO2 10/06/19 10:47 98.0 60 18 123/70 (87) 98 Room Air 98.0 Intake and Output 10/06/19 07:00 Intake Total 0 ml Output Total 200 ml Balance -200 ml Intake Oral 0 ml Output Urine Total 200 ml # Voids 1 Assessment Assessment Problems Medical Problems: (1) Paresthesia Status: Acute Comment Review of Relevant I have reviewed the following items angel (where applicable) has been applied. Labs Laboratory Tests Test 10/05/19 09:05 10/05/19 20:30 White Blood Count 5.8 x10^3/uL (4.0-11.0) Red Blood Count 4.65 x10^6/uL (4.30-5.70) Hemoglobin 14.7 g/dL (13.0-17.5) Hematocrit 43.1 % (39.0-53.0) Mean Corpuscular Volume 93 fL (79-100) Mean Corpuscular Hemoglobin 32 pg (25-35) Mean Corpuscular Hemoglobin Concent 34 g/dL (31-37) Red Cell Distribution Width 15.7 % (11.5-14.5) Platelet Count 257 x10^3/uL (140-400) Neutrophils (%) (Auto) 69 % (31-73) Lymphocytes (%) (Auto) 22 % (24-48) Monocytes (%) (Auto) 8 % (0-9) Eosinophils (%) (Auto) 1 % (0-3) Basophils (%) (Auto) 1 % (0-3) Neutrophils # (Auto) 4.0 x10^3/uL (1.8-7.7) Lymphocytes # (Auto) 1.2 x10^3/uL (1.0-4.8) Monocytes # (Auto) 0.5 x10^3/uL (0.0-1.1) Eosinophils # (Auto) 0.0 x10^3/uL (0.0-0.7) Basophils # (Auto) 0.0 x10^3/uL (0.0-0.2) Prothrombin Time 12.8 SEC (11.7-14.0) Prothromb Time International Ratio 1.0 (0.8-1.1) Sodium Level 143 mmol/L (136-145) Potassium Level 3.8 mmol/L (3.5-5.1) Chloride Level 107 mmol/L (98-107) Carbon Dioxide Level 25 mmol/L (21-32) Anion Gap 11 (6-14) Blood Urea Nitrogen 15 mg/dL (8-26) Creatinine 1.2 mg/dL (0.7-1.3) Estimated GFR (Cockcroft-Gault) 80.7 BUN/Creatinine Ratio 13 (6-20) Glucose Level 88 mg/dL (70-99) Calcium Level 9.0 mg/dL (8.5-10.1) Total Bilirubin 0.2 mg/dL (0.2-1.0) Aspartate Amino Transf (AST/SGOT) 19 U/L (15-37) Alanine Aminotransferase (ALT/SGPT) 16 U/L (16-63) Alkaline Phosphatase 48 U/L (46-116) Total Protein 6.6 g/dL (6.4-8.2) Albumin 3.7 g/dL (3.4-5.0) Albumin/Globulin Ratio 1.3 (1.0-1.7) Urine Collection Type Unknown Urine Color Yellow Urine Clarity Clear Urine pH 5.5 (<5.0-8.0) Urine Specific [place] >=1.030 (1.000-1.030) Urine Protein Negative mg/dL (NEG-TRACE) Urine Glucose (UA) Negative mg/dL (NEG) Urine Ketones (Stick) Negative mg/dL (NEG) Urine Blood Negative (NEG) Urine Nitrite Negative (NEG) Urine Bilirubin Negative (NEG) Urine Urobilinogen Dipstick 0.2 mg/dL (0.2 mg/dL) Urine Leukocyte Esterase Negative (NEG) Urine RBC 1-2 /HPF (0-2) Urine WBC 5-10 /HPF (0-4) Urine Bacteria 0 /HPF (0-FEW) Urine Mucus Marked /LPF Urine Opiates Screen Neg (NEG) Urine Methadone Screen Neg (NEG) Urine Barbiturates Neg (NEG) Urine Phencyclidine Screen Pos (NEG) Urine Amphetamine/Methamphetamine Neg (NEG) Urine Benzodiazepines Screen Pos (NEG) Urine Cocaine Screen Neg (NEG) Urine Cannabinoids Screen Pos (NEG) Urine Ethyl Alcohol Neg (NEG) Laboratory Tests Test 10/05/19 20:30 Urine Collection Type Unknown Urine Color Yellow Urine Clarity Clear Urine pH 5.5 (<5.0-8.0) Urine Specific [place] >=1.030 (1.000-1.030) Urine Protein Negative mg/dL (NEG-TRACE) Urine Glucose (UA) Negative mg/dL (NEG) Urine Ketones (Stick) Negative mg/dL (NEG) Urine Blood Negative (NEG) Urine Nitrite Negative (NEG) Urine Bilirubin Negative (NEG) Urine Urobilinogen Dipstick 0.2 mg/dL (0.2 mg/dL) Urine Leukocyte Esterase Negative (NEG) Urine RBC 1-2 /HPF (0-2) Urine WBC 5-10 /HPF (0-4) Urine Bacteria 0 /HPF (0-FEW) Urine Mucus Marked /LPF Urine Opiates Screen Neg (NEG) Urine Methadone Screen Neg (NEG) Urine Barbiturates Neg (NEG) Urine Phencyclidine Screen Pos (NEG) Urine Amphetamine/Methamphetamine Neg (NEG) Urine Benzodiazepines Screen Pos (NEG) Urine Cocaine Screen Neg (NEG) Urine Cannabinoids Screen Pos (NEG) Urine Ethyl Alcohol Neg (NEG) Medications Current Medications Diazepam (Valium) 5 mg 1X ONCE PO Last administered on 10/05/19at 08:24; Start 10/05/19 at 08:15; Stop 10/05/19 at 08:16; Status DC Iohexol (Omnipaque 350 Mg/ml) 75 ml 1X ONCE IV Last administered on 10/05/19at 10:44; Start 10/05/19 at 10:30; Stop 10/05/19 at 10:32; Status DC Albuterol Sulfate (Ventolin Neb Soln) 2.5 mg PRN Q4HRS PRN NEB SHORTNESS OF BREATH; Start 10/05/19 at 12:15 Non-Formulary Medication (Fluticasone/ Salmeterol (Advair 500-50 Diskus)) 1 puff BID IH ; Start 10/05/19 at 21:00; Status UNV Albuterol Sulfate (Ventolin Neb Soln) 2.5 mg RTQID NEB ; Start 10/05/19 at 16:00; Stop 10/06/19 at 11:44; Status DC Budesonide (Pulmicort) 0.5 mg RTBID NEB Last administered on 10/06/19at 07:23; Start 10/05/19 at 20:00 Sodium Chloride (Normal Saline Flush) 3 ml QSHIFT PRN IV AFTER MEDS AND BLOOD DRAWS; Start 10/05/19 at 12:15 Sodium Chloride 1,000 ml @ 125 mls/hr Q8H IV Last administered on 10/06/19at 12:13; Start 10/05/19 at 12:13 Ondansetron HCl (Zofran) 4 mg PRN Q4HRS PRN IV NAUSEA/VOMITING; Start 10/05/19 at 12:15 Acetaminophen (Tylenol) 650 mg PRN Q4HRS PRN PO TEMP OVER 100.4F OR MILD PAIN; Start 10/05/19 at 12:15 Al Hydroxide/Mg Hydroxide (Mylanta Plus Xs) 30 ml PRN DAILY PRN PO HEARTBURN / GAS; Start 10/05/19 at 12:15 Clonidine HCl (Catapres) 0.1 mg PRN Q6HRS PRN PO SBP>160 OR DBP>90; Start 10/05/19 at 12:15 Sodium Monofluorophosphate (Fleet Adult) 133 ml PRN DAILY PRN [place] CONSTIPATION; Start 10/05/19 at 12:15 Docusate Sodium (Colace) 100 mg PRN BID PRN PO HARD STOOLS; Start 10/05/19 at 12:15 Albuterol/ Ipratropium (Duoneb) 3 ml Q4HRS W/A NEB Last administered on 10/06/19at 07:18; Start 10/05/19 at 14:00 Guaifenesin (Robitussin) 200 mg PRN Q4HRS PRN PO COUGH; Start 10/05/19 at 12:15 Lorazepam (Ativan) 0.5 mg PRN Q4HRS PRN PO ANXIETY / AGITATION; Start 10/05/19 at 12:15 Hydromorphone HCl (Dilaudid) 0.5 mg PRN Q2HRS PRN IV SEVERE PAIN 7-10 Last administered on 10/06/19at 07:48; Start 10/05/19 at 12:15 Active Scripts Active Advair 500-50 Diskus (Fluticasone/Salmeterol) 1 Each Disk.w.dev 1 Puff IH BID Albuterol Sulfate Neb Soln (Albuterol Sulfate) 2.5 Mg/3 Ml Vial.neb 2.5 Mg NEB PRN Q4HRS PRN Vitals/I & O Vital Sign - Last 24 Hours 10/05/19 10/05/19 10/05/19 10/05/19 13:39 15:00 15:33 19:00 Temp 98.4 98.4 Pulse 54 72 Resp 16 18 B/P (MAP) 139/91 (107) 146/81 (102) Pulse Ox 98 99 99 O2 Delivery Room Air Room Air Room Air Room Air 10/05/19 10/05/19 10/05/19 10/05/19 19:47 19:48 20:00 23:00 Temp 98.7 98.7 Pulse 75 Resp 18 B/P (MAP) 111/64 (80) Pulse Ox 99 99 99 O2 Delivery Room Air Room Air Room Air Room Air 10/06/19 10/06/19 10/06/19 10/06/19 03:00 07:00 07:21 07:23 Temp 98.2 96.8 98.2 96.8 Pulse 55 75 Resp 18 18 B/P (MAP) 122/71 (88) 120/75 (90) Pulse Ox 99 98 98 98 O2 Delivery Room Air Room Air Room Air Room Air 10/06/19 10/06/19 10/06/19 10/06/19 07:45 07:48 08:18 10:47 Temp 98.0 98.0 Pulse 60 Resp 18 B/P (MAP) 123/70 (87) Pulse Ox 98 98 98 O2 Delivery Room Air Room Air Room Air Room Air Intake and Output 10/05/19 10/05/19 10/06/19 15:00 23:00 07:00 Intake Total 0 ml Output Total 200 ml Balance -200 ml SUSI CANALES MD Oct 06, 2019 12:51
[2019-10-06 15:00] VITALS: BP 130/76
--- NOTE | 2019-10-06 15:19 | PDOC3 ---
Discharge Summary Date of Admission: Oct 05, 2019 Date of Discharge: Oct 06, 2019 Follow-Up: Other ( 2 WEEKS ) Admitting Diagnosis comment: DISCHARGE DX Assessment/Plan IMPRESSION: 1. Mechanical fall from truck while asleep POA 2. displaced TRAUMATIC acute fracture involving the left C7 transverse process extending to the left C7 facet, as described in detail above. There is suggestion of disruption of the left transverse foramen at T7. CTA of the neck // No dissection or pseudoaneurysm of the cervical carotid or vertebral arteries. 3 bullous emphysematous changes at the lung apices as no lung markings are identified bilaterally. 4. hx THC abuse 5. POLYSUBSTANCE ABUSE including pcp 6. Right upper lobe partially calcified subpleural nodule measuring up to 2 cm. Recommend three-month follow-up chest CT to assess stability. PET/CT could also be considered. admit NEUROSURGERY CONSULT covid screen for possible surgery [facility] PUM CONSULT will see in f/u IV FLUID SUPPORT SCD'S DVT PROPHYLAXIS NEUROCHECKS Q 4 HRS BEDREST FALL PRECAUTIONS PAIN CONTROL substance abuse counseling [facility] remain in hard collar [facility] dc home 10/[address] ACNALES will follow up with c spine x rays in [address] ROBERSON NO DRIVING , NO DRUG ABUSE 34 min pt exam, chart review, > 50% of time spent with exam, chart review, pt care coordination Justicifation of Admission Dx: Justicifation of Admission Dx: Justifications for Admission: Justification of Admission Dx: Yes Altered Mental Status: Altered Mental Status Comments: cervical spine fracture Vitals Vitals Vital Signs Date Time Temp Pulse Resp B/P (MAP) Pulse Ox O2 Delivery O2 Flow Rate FiO2 10/06/19 10:47 98.0 60 18 123/70 (87) 98 Room Air 98.0 Physical Exam General: Alert, Oriented X3, Cooperative, No acute distress Heart: Regular rate, Normal S1 Lungs: Clear Abdomen: Normal bowel sounds, Soft Extremities: No cyanosis Skin: No significant lesion Labs LABS CT CHEST WO CONTRAST INDICATION: Reason: bullous lung dz / Spl. Instructions: / History: . COMPARISON STUDY: CT C-spine 10/05/2019. TECHNIQUE: Unenhanced axial images were obtained through the lungs and upper abdomen. Coronal and sagittal multiplanar reconstructions were also obtained. PQRS compliance statement: One or more of the following individualized dose reduction techniques were utilized for this examination: 1. Automated exposure control 2. Adjustment of the mA and/or kV according to patient size 3. Use of iterative reconstruction technique FINDINGS: Lungs and Airways: Right upper lobe subpleural nodule with areas of faint calcification measuring 1.2 x 1.2 x 2.0 cm (AP by TV by CC). Paraseptal emphysema with biapical bullous disease, most pronounced on the right with involvement of a majority of the right upper lobe. Normal central airways. Pleura: The pleural spaces are normal. Heart and Mediastinum: The visualized thyroid gland is normal in size and attenuation. No axillary or supraclavicular lymphadenopathy. No mediastinal, hilar or retrocrural lymphadenopathy. The heart and pericardium are within normal limits. The great vessels of the thorax are normal. Abdomen: The visualized abdominal organs demonstrate no abnormality. Bones and Soft Tissues: The visualized skeletal structures and soft tissues of the chest wall are within normal limits. IMPRESSION: 1. Right upper lobe partially calcified subpleural nodule measuring up to 2 cm. Recommend three-month follow-up chest CT to assess stability. PET/CT could also be considered. 2. Paraseptal emphysema with biapical bullous disease, greater on the right. Electronically signed by: Grant Castanon MD (10/06/2019 8:58 AM) [id number] FINAL DIAGNOSIS Problems Medical Problems: (1) Paresthesia Status: Acute Brief Hospital Course Mr. Trejo is a 43 old [sex] who presented with [ FALL, C7 FX ] Discharge Medications Current Medications Diazepam (Valium) 5 mg 1X ONCE PO Last administered on 10/05/19at 08:24; Start 10/05/19 at 08:15; Stop 10/05/19 at 08:16; Status DC Iohexol (Omnipaque 350 Mg/ml) 75 ml 1X ONCE IV Last administered on 10/05/19at 10:44; Start 10/05/19 at 10:30; Stop 10/05/19 at 10:32; Status DC Albuterol Sulfate (Ventolin Neb Soln) 2.5 mg PRN Q4HRS PRN NEB SHORTNESS OF BREATH; Start 10/05/19 at 12:15 Non-Formulary Medication (Fluticasone/ Salmeterol (Advair 500-50 Diskus)) 1 puff BID IH ; Start 10/05/19 at 21:00; Status UNV Albuterol Sulfate (Ventolin Neb Soln) 2.5 mg RTQID NEB ; Start 10/05/19 at 16:00; Stop 10/06/19 at 11:44; Status DC Budesonide (Pulmicort) 0.5 mg RTBID NEB Last administered on 10/06/19at 07:23; Start 10/05/19 at 20:00 Sodium Chloride (Normal Saline Flush) 3 ml QSHIFT PRN IV AFTER MEDS AND BLOOD DRAWS; Start 10/05/19 at 12:15 Sodium Chloride 1,000 ml @ 125 mls/hr Q8H IV Last administered on 10/06/19at 12 :13; Start 10/05/19 at 12:13 Ondansetron HCl (Zofran) 4 mg PRN Q4HRS PRN IV NAUSEA/VOMITING; Start 10/05/19 at 12:15 Acetaminophen (Tylenol) 650 mg PRN Q4HRS PRN PO TEMP OVER 100.4F OR MILD PAIN; Start 10/05/19 at 12:15 Al Hydroxide/Mg Hydroxide (Mylanta Plus Xs) 30 ml PRN DAILY PRN PO HEARTBURN / GAS; Start 10/05/19 at 12:15 Clonidine HCl (Catapres) 0.1 mg PRN Q6HRS PRN PO SBP>160 OR DBP>90; Start 10/05/19 at 12:15 Sodium Monofluorophosphate (Fleet Adult) 133 ml PRN DAILY PRN [place] CONSTIPATION; Start 10/05/19 at 12:15 Docusate Sodium (Colace) 100 mg PRN BID PRN PO HARD STOOLS; Start 10/05/19 at 12:15 Albuterol/ Ipratropium (Duoneb) 3 ml Q4HRS W/A NEB Last administered on 10/06/19at 07:18; Start 10/05/19 at 14:00 Guaifenesin (Robitussin) 200 mg PRN Q4HRS PRN PO COUGH; Start 10/05/19 at 12:15 Lorazepam (Ativan) 0.5 mg PRN Q4HRS PRN PO ANXIETY / AGITATION; Start 10/05/19 at 12:15 Hydromorphone HCl (Dilaudid) 0.5 mg PRN Q2HRS PRN IV SEVERE PAIN 7-10 Last administered on 10/06/19at 07:48; Start 10/05/19 at 12:15 Active Scripts Active Advair 500-50 Diskus (Fluticasone/Salmeterol) 1 Each Disk.w.dev 1 Puff IH BID Albuterol Sulfate Neb Soln (Albuterol Sulfate) 2.5 Mg/3 Ml Vial.neb 2.5 Mg NEB PRN Q4HRS PRN Vital Signs Vital Signs Date Time Temp Pulse Resp B/P (MAP) Pulse Ox O2 Delivery O2 Flow Rate FiO2 10/06/19 10:47 98.0 60 18 123/70 (87) 98 Room Air 98.0 Labs Laboratory Tests Test 10/05/19 09:05 10/05/19 15:40 10/05/19 20:30 White Blood Count 5.8 x10^3/uL (4.0-11.0) Red Blood Count 4.65 x10^6/uL (4.30-5.70) Hemoglobin 14.7 g/dL (13.0-17.5) Hematocrit 43.1 % (39.0-53.0) Mean Corpuscular Volume 93 fL (79-100) Mean Corpuscular Hemoglobin 32 pg (25-35) Mean Corpuscular Hemoglobin Concent 34 g/dL (31-37) Red Cell Distribution Width 15.7 % (11.5-14.5) Platelet Count 257 x10^3/uL (140-400) Neutrophils (%) (Auto) 69 % (31-73) Lymphocytes (%) (Auto) 22 % (24-48) Monocytes (%) (Auto) 8 % (0-9) Eosinophils (%) (Auto) 1 % (0-3) Basophils (%) (Auto) 1 % (0-3) Neutrophils # (Auto) 4.0 x10^3/uL (1.8-7.7) Lymphocytes # (Auto) 1.2 x10^3/uL (1.0-4.8) Monocytes # (Auto) 0.5 x10^3/uL (0.0-1.1) Eosinophils # (Auto) 0.0 x10^3/uL (0.0-0.7) Basophils # (Auto) 0.0 x10^3/uL (0.0-0.2) Prothrombin Time 12.8 SEC (11.7-14.0) Prothromb Time International Ratio 1.0 (0.8-1.1) Sodium Level 143 mmol/L (136-145) Potassium Level 3.8 mmol/L (3.5-5.1) Chloride Level 107 mmol/L (98-107) Carbon Dioxide Level 25 mmol/L (21-32) Anion Gap 11 (6-14) Blood Urea Nitrogen 15 mg/dL (8-26) Creatinine 1.2 mg/dL (0.7-1.3) Estimated GFR (Cockcroft-Gault) 80.7 BUN/Creatinine Ratio 13 (6-20) Glucose Level 88 mg/dL (70-99) Calcium Level 9.0 mg/dL (8.5-10.1) Total Bilirubin 0.2 mg/dL (0.2-1.0) Aspartate Amino Transf (AST/SGOT) 19 U/L (15-37) Alanine Aminotransferase (ALT/SGPT) 16 U/L (16-63) Alkaline Phosphatase 48 U/L (46-116) Total Protein 6.6 g/dL (6.4-8.2) Albumin 3.7 g/dL (3.4-5.0) Albumin/Globulin Ratio 1.3 (1.0-1.7) Coronavirus (COVID-19)(PCR) Not detected (NOT DETECT.) Urine Collection Type Unknown Urine Color Yellow Urine Clarity Clear Urine pH 5.5 (<5.0-8.0) Urine Specific [place] >=1.030 (1.000-1.030) Urine Protein Negative mg/dL (NEG-TRACE) Urine Glucose (UA) Negative mg/dL (NEG) Urine Ketones (Stick) Negative mg/dL (NEG) Urine Blood Negative (NEG) Urine Nitrite Negative (NEG) Urine Bilirubin Negative (NEG) Urine Urobilinogen Dipstick 0.2 mg/dL (0.2 mg/dL) Urine Leukocyte Esterase Negative (NEG) Urine RBC 1-2 /HPF (0-2) Urine WBC 5-10 /HPF (0-4) Urine Bacteria 0 /HPF (0-FEW) Urine Mucus Marked /LPF Urine Opiates Screen Neg (NEG) Urine Methadone Screen Neg (NEG) Urine Barbiturates Neg (NEG) Urine Phencyclidine Screen Pos (NEG) Urine Amphetamine/Methamphetamine Neg (NEG) Urine Benzodiazepines Screen Pos (NEG) Urine Cocaine Screen Neg (NEG) Urine Cannabinoids Screen Pos (NEG) Urine Ethyl Alcohol Neg (NEG) Laboratory Tests Test 10/05/19 15:40 10/05/19 20:30 Coronavirus (COVID-19)(PCR) Not detected (NOT DETECT.) Urine Collection Type Unknown Urine Color Yellow Urine Clarity Clear Urine pH 5.5 (<5.0-8.0) Urine Specific [place] >=1.030 (1.000-1.030) Urine Protein Negative mg/dL (NEG-TRACE) Urine Glucose (UA) Negative mg/dL (NEG) Urine Ketones (Stick) Negative mg/dL (NEG) Urine Blood Negative (NEG) Urine Nitrite Negative (NEG) Urine Bilirubin Negative (NEG) Urine Urobilinogen Dipstick 0.2 mg/dL (0.2 mg/dL) Urine Leukocyte Esterase Negative (NEG) Urine RBC 1-2 /HPF (0-2) Urine WBC 5-10 /HPF (0-4) Urine Bacteria 0 /HPF (0-FEW) Urine Mucus Marked /LPF Urine Opiates Screen Neg (NEG) Urine Methadone Screen Neg (NEG) Urine Barbiturates Neg (NEG) Urine Phencyclidine Screen Pos (NEG) Urine Amphetamine/Methamphetamine Neg (NEG) Urine Benzodiazepines Screen Pos (NEG) Urine Cocaine Screen Neg (NEG) Urine Cannabinoids Screen Pos (NEG) Urine Ethyl Alcohol Neg (NEG) Allergies Allergies Coded Allergies Type Severity Reaction Last Updated Verified No Known Drug Allergies 11/22/15 No Disposition/Orders: D/C to Home Patient Instructions SEE DR CHAMPAGNE 3 MONTHS NO SMOKING Justicifation of Admission Dx: Justifications for Admission: Justification of Admission Dx: Yes Altered Mental Status: Altered Mental Status YOLIS FARNSWORTH MD Oct 06, 2019 15:19
[2019-10-06] MEDS ORDERED: ACET325T9 PO (15:21)
[2019-10-06] MEDS ORDERED: DOCU-153 PO (15:21)
--- NOTE | 2019-10-06 15:23 | DISCH ---
DISCHARGE INSTRUCTIONS Condition on Discharge Condition on Discharge: Stable Activity After Discharge Activity Instructions for Disc: Activity as tolerated, Avoid exertion Driving Instructions after Dis: Do not drive Weight Bearing Status after Di: As tolerated Diet after Discharge Diet after Discharge: Regular Liquid Texture: Thin Liquid Contacting the DR. after DC Call your doctor for: If your condition worsens Follow-Up Follow up with: BHUMI for possible bullectomy. Follow Up With: Dr Maguire after C-spine xray in two weeks. JESSI Saldivar will call you. Treatment/Equipment after DC Comment: Need PFTs and alpha -1 level checked as outpatient Warfarin Follow-Up Warfarin Follow UP: SEE DR ROBERSON 2 WEEKS, DR CHAMPAGNE 3 MONTHS, PCP NEXT WEEK , NO DRUGS YOLIS FARNSWORTH MD Oct 06, 2019 15:23
--- NOTE | 2019-10-06 16:30 | NUR ---
Patient left the building with his mom around 1630. Discharge instructions addressed in detail prior to discharge. IV discontinued without any complications noted. Medications sent to pharmacy per Dr Jauregui. Follow up instructions addressed without any concerns noted. New C Collar from [facility] arrived and on patient at time of discharge. Old collar taken with patient as well per JESSI Saldivar's instructions. Script given for follow up C-spine xray and JESSI Saldivar will follow up with the patient about his C7 fracture. No concerns noted at discharge.
== END 2019-10-06 16:30 | disposition home or self-care (01) | DRG 552 ==
LOC: ER 07:25 → 4 NORTH 11:30 → OBSVTOIN 14:00
PROVIDERS: ADMIT Family Medicine; ATTEND Family Medicine
DX: S12.600A Unspecified displaced fracture of seventh cervical vertebra, initial encounter for closed fracture (principal); F17.210 Nicotine dependence, cigarettes, uncomplicated; J43.8 Other emphysema; M48.02 Spinal stenosis, cervical region; Z82.5 Family history of asthma and other chronic lower respiratory diseases; F12.10 Cannabis abuse, uncomplicated; W01.0XXA Fall on same level from slipping, tripping and stumbling without subsequent striking against object, initial encounter; Y93.89 Activity, other specified; Y92.89 Other specified places as the place of occurrence of the external cause; Y99.8 Other external cause status; F19.10 Other psychoactive substance abuse, uncomplicated; Z20.828 Contact with and (suspected) exposure to other viral communicable diseases
CPT/HCPCS: 36415; 70498; 71250; 72125; 72141; 73030; 80053; 80307; 81001; 85025; 85610; 87086; 94640; 94760; G0378; G0379; J1170; J7030; Q9967; 99285-25; J7626; U0003-CS

== ENCOUNTER 2020-11-12 23:00 | Emergency (ER) | payer SELFPAY ==
[~2020-11-12] VITALS: Ht 182.9 cm; Wt 65.0 kg
[~2020-11-12 23:00] MED LIST changes: +ACET325T9 PO; +DOCU-153 PO
[2020-11-12] MEDS ORDERED: IV NORMAL SALINE 1000ML BAG 1,000 ML IV ONE (23:15)
--- NOTE | 2020-11-12 23:49 | RAD ---
EXAMINATION: Chest radiograph. VIEWS: Single view COMPARISON: CT chest dated 10/06/2019 INDICATION:45 years, Male, altered mental status. FINDINGS: Normal cardiomediastinal silhouette. Redemonstrated bilateral upper emphysematous bullae, larger in t he right, unchanged since prior exam. No focal consolidation. No pleural effusion or discrete pneumot horax. No acute osseous process. IMPRESSION: 1. No acute cardiopulmonary abnormality. 2. Unchanged bilateral upper emphysematous bullae larger in the right. 3. No definite pneumothorax. Electronically signed by: Gabriel Leon MD (11/12/2020 11:47 PM) [facility]
--- NOTE | 2020-11-13 00:06 | PHYS DOC ---
Past Medical History Past Medical History: COPD, Other Additional Past Medical Histor: EMPHYSEMA Past Surgical History: Other Additional Past Surgical Histo: SCROTUM SX Smoking Status: Current Every Day Smoker Alcohol Use: None Drug Use: Marijuana General Adult EDM: Chief Complaint: ALTERED MENTAL STATUS HPI: HPI: Patient is a 45 year old male who presents with distant PCP and was at home and was going to just sit with his sister but mother decided that patient needed to go to the hospital to get some help. Patient states that he does do PCP and marijuana regularly. States he did not drink any alcohol. He states that he would like some help with drug abuse. Is a history of COPD, scrotum pain and smoker. Patient denies any pain, chest pain, abdominal pain, headache, dizziness, vision change, numbness or tingling, syncope, fall, nausea, vomiting, diarrhea, fever, cough, shortness of breath, focal weakness. Review of Systems: Review of Systems: Constitutional: Denies fever or chills. [] Eyes: Denies change in visual acuity. [] HENT: Denies nasal congestion or sore throat. [] Respiratory: Denies cough or shortness of breath. [] Cardiovascular: Denies chest pain or edema. [] GI: Denies abdominal pain, nausea, vomiting, bloody stools or diarrhea. [] : Denies dysuria. [] Musculoskeletal: Denies back pain or joint pain. [] Integument: Denies rash. [] Neurologic: Denies headache, focal weakness or sensory changes. + Drug use [] Endocrine: Denies polyuria or polydipsia. [] Lymphatic: Denies swollen glands. [] Psychiatric: Denies depression or anxiety. [] Heart Score: C/O Chest Pain: No HEART Score for Chest Pain: HEART Score for Chest Pain Response (Comments) Value History Slighlty/Non-Suspicious 0 ECG Nonspecific Repolarizatio 1 Age < 45 0 Risk Factors 1 or 2 Risk Factors 1 Troponin < Normal Limit 0 Total 2 Risk Factors: Risk Factors: DM, Current or recent (<one month) smoker, HTN, HLP, family history of CAD, obesity. Risk Scores: Score 0 - 3: 2.5% MACE over next 6 weeks - Discharge Home Score 4 - 6: 20.3% MACE over next 6 weeks - Admit for Clinical Observation Score 7 - 10: 72.7% MACE over next 6 weeks - Early Invasive Strategies Current Medications: Current Medications Medications (Trade) Dose Ordered Sig/Vinny Start Time Stop Time Status Last Admin Dose Admin Sodium Chloride 1,000 ml @ 1,000 mls/hr 1X ONCE 11/12/20 23:15 11/13/20 00:14 Allergies: Allergies: Allergies Coded Allergies Type Severity Reaction Last Updated Verified No Known Drug Allergies 11/22/15 No Physical Exam: PE: Constitutional: Well developed, well nourished, no acute distress, non-toxic appearance. [] HENT: Normocephalic, atraumatic, bilateral external ears normal, oropharynx moist, no oral exudates, nose normal. [] Eyes: PERRLA, EOMI, conjunctiva normal, no discharge. [] Neck: Normal range of motion, no tenderness, supple, no stridor. [] Cardiovascular:Heart rate regular rhythm, no murmur [] Lungs & Thorax: Bilateral breath sounds clear to auscultation [] Abdomen: Bowel sounds normal, soft, no tenderness, no masses, no pulsatile ma sses. [] Skin: Warm, dry, no erythema, no rash. [] Back: No tenderness, no CVA tenderness. [] Extremities: No tenderness, no cyanosis, no clubbing, ROM intact, no edema. [] Neurologic: Alert and oriented X 3, normal motor function, normal sensory function, no focal deficits noted. [] Psychologic: Affect normal, judgement normal, mood normal. [] Normal physical exam EKG: EK and read by Dr. Angela as sinus rhythm with a inverted T wave in V2 but no STEMI. Radiology/Procedures: Radiology/Procedures: [] Impression: [facility] [address] [place], [place] [id number] IMAGING REPORT Signed PATIENT: BEN RICHARDS ACCOUNT: [id number] : 1975 LOCATION: ER AGE: 45 SEX: M EXAM STATUS: REG ER ORD. PHYSICIAN: QUENTIN LIGHT APRN REASON: AMS PROCEDURE: PORTABLE CHEST 1V EXAMINATION: Chest radiograph. VIEWS: Single view COMPARISON: CT chest dated 10/06/2019 INDICATION:45 years, Male, altered mental status. FINDINGS: Normal cardiomediastinal silhouette. Redemonstrated bilateral upper emphysematous bullae, larger in the right, unchanged since prior exam. No focal consolidation. No pleural effusion or discrete pneumothorax. No acute osseous process. IMPRESSION: 1. No acute cardiopulmonary abnormality. 2. Unchanged bilateral upper emphysematous bullae larger in the right. 3. No definite pneumothorax. Electronically signed by: Deangelo Leon MD (11/12/2020 11:47 PM) [facility] DICTATED and SIGNED BY: DEANGELO LEON MD DATE: 11/12/20 [id number] 0 Course & Med Decision Making: Course & Med Decision Making Pertinent Labs and Imaging studies reviewed. (See chart for details) See HPI. Alert and oriented x4. Ambulatory steady gait. Speaks in full clear sentences. Skin pink warm and dry. Vital signs within normal limits. He states that he did not want to come to the hospital but while he is here he would take some information for rehab. He is calm and cooperative. PAT team is paged. Patient denies homicidal thoughts or suicidal thoughts. Patti with PAT team came up and spoke with the patient gave him resources. She states he is good to go home. Blood work unremarkable. Patient has no alcohol in his system. [] Erika Disclaimer: Erika Disclaimer: This electronic medical record was generated, in whole or in part, using a voice recognition dictation system. Departure Departure Impression: Primary Impression: Substance abuse Disposition: 01 HOME / SELF CARE / HOMELESS Condition: STABLE Referrals: NO PCP (PCP) Patient Instructions: Substance Abuse-Brief Additional Instructions: Follow-up with your primary care provider or use the resources that you were given today. Drink plenty of fluids to stay hydrated. QUENTIN LIGHT MAKE UP GIRL Nov 13, 2020 00:06
[2020-11-13 00:14] LABS: BASO # 0.1 x10^3/uL (0.0-0.2); BASO % 1 % (0-3); EOS % 0 % (0-3); HEMATOCRIT 41.5 % (39.0-53.0); HEMOGLOBIN 14.2 g/dL (13.0-17.5); LYMPH # 1.3 x10^3/uL (1.0-4.8); LYMPH % 12 % (24-48); MEAN CORPUSCULAR HEMOGLOBIN 31 pg (25-35); MEAN CORPUSCULAR HGB CONC 34 g/dL (31-37); MEAN CORPUSCULAR VOLUME 91 fL (79-100); MONO # 0.7 x10^3/uL (0.0-1.1); MONO % 7 % (0-9); NEUT # 8.4 x10^3/uL (1.8-7.7); NEUT % 80 % (31-73); PLATELET COUNT 208 x10^3/uL (140-400); RED BLOOD COUNT 4.56 x10^6/uL (4.30-5.70); WHITE BLOOD COUNT 10.5 x10^3/uL (4.0-11.0)
[2020-11-13 00:40] LABS: CALCIUM 9.4 mg/dL (8.5-10.1); CREATININE 1.3 mg/dL (0.7-1.3); GFR 72.9; POTASSIUM 3.8 mmol/L (3.5-5.1)
[2020-11-13 00:46] LABS: ALBUMIN 4.3 g/dL (3.4-5.0); ALBUMIN/GLOBULIN RATIO 1.7 (1.0-1.7); TOTAL BILIRUBIN 0.5 mg/dL (0.2-1.0); TOTAL PROTEIN 6.9 g/dL (6.4-8.2)
[2020-11-13 01:22] LABS: BILIRUBIN,URINE NEGATIVE (NEG); CLARITY,URINE CLEAR; COLOR,URINE YELLOW; NITRITE,URINE NEGATIVE (NEG); PROTEIN,URINE NEGATIVE (NEG-TRACE); UROBILINOGEN,URINE 0.2 mg/dL (0.2 mg/dL)
[2020-11-13 01:28] LABS: BACTERIA,URINE 0 /HPF (0-FEW); BARBITURATES NEG (NEG); BENZODIAZEPINES NEG (NEG); CANNABINOIDS POS (NEG); COCAINE NEG (NEG); HYALINE CASTS, URINE OCCASIONAL /HPF; METHADONE NEG (NEG); OPIATES NEG (NEG); PHENCYCLIDINE POS (NEG); RBC,URINE 0 /HPF (0-2); WBC,URINE OCC /HPF (0-4)
[2020-11-13 01:36] LABS: AMPHETAMINE/METHAMPHETAMINE NEG (NEG)
--- NOTE | 2020-11-13 01:42 | EKG ---
[facility] [address] [place] [id number] Test Date: 2020-11-12 Test Time: 23:27:39 Pat Name: BEN RICHARDS Department: Room: Gender: M Efficiency Analyst: : 1975 Requested By: QUENTIN LIGHT Order Number: [id number] Reading MD: Measurements Intervals [place] Rate: 60 P: 62 OR: 190 QRS: 62 QRSD: 78 T: 52 QT: 400 QTc: 404 Interpretive Statements SINUS RHYTHM QRS(T) CONTOUR ABNORMALITY CANNOT RULE OUT ANTEROSEPTAL MYOCARDIAL DAMAGE BORDERLINE ECG RI6.02 No previous ECG available for comparison
[2020-11-13 01:46] VITALS: BP 124/78
== END 2020-11-13 01:50 | disposition home or self-care (01) ==
LOC: ER 23:00
DX: F16.10 Hallucinogen abuse, uncomplicated (principal); J44.9 Chronic obstructive pulmonary disease, unspecified; F17.200 Nicotine dependence, unspecified, uncomplicated
CPT/HCPCS: 36415; 71045; 80053; 80307; 81001; 84484; 85025; 93005; 96360; 99285; G0480; J7030